=== PATIENT | female | born 1960 | race Caucasian/White ===

== ENCOUNTER 2017-10-30 08:51 | Emergency (ER) | payer OTHER ==
[~2017-10-30] VITALS: Ht 160 cm; Wt 60.3 kg
[~2017-10-30 08:51] MED LIST: ANTIDEPRESSANT; MECLIZINE HCL25 M1 PO; NEXIUM20 M1; PEGASYS180 MCG/1 SQ; PRILOSEC 20 MG20 MG PO; PROZAC 20 MG20 MG PO; RIBAVIRIN200 M1 PO; SYNTHROID112 MCG PO; ZOFRAN4 MG PO
[2017-10-30] MEDS ORDERED: TOPAMAX 25 MG T25 M1 PO (09:08)
[2017-10-30] MEDS ORDERED: SYNTHROID100 MCG PO (09:08)
[2017-10-30] MEDS ORDERED: IMITREX100 MG PO (09:09)
[2017-10-30] MEDS ORDERED: NEXIUM40 MG PO (09:09)
[2017-10-30] MEDS ORDERED: NAPROSYN500 MG PO (09:51)
[2017-10-30] MEDS ORDERED: AUGMENTIN 500-1 EACH PO (09:51)
[2017-10-30] MEDS ORDERED: NORCO 5-325 TA1 EACH PO (09:51)
[2017-10-30 10:09] VITALS: BP 130/82
== END 2017-10-30 10:09 | disposition home or self-care (01) ==
LOC: M.ERS 08:51
DX: M25.562 Pain in left knee (principal); E03.9 Hypothyroidism, unspecified; F32.9 Major depressive disorder, single episode, unspecified; Z90.710 Acquired absence of both cervix and uterus

== ENCOUNTER → 2017-11-02 | Outpatient (CLI) | payer OTHER ==
[~2017-11-02] MED LIST changes: +AUGMENTIN 500-1 EACH PO; +IMITREX100 MG PO; +NAPROSYN500 MG PO; +NEXIUM40 MG PO; +NORCO 5-325 TA1 EACH PO; +SYNTHROID100 MCG PO; +TOPAMAX 25 MG T25 M1 PO
[2017-11-02 17:57] LABS: BF RBC 10128 /mm3; TOTAL CELL COUNT 6947 /mm3
[2017-11-02 19:15] LABS: CLARITY CLOUDY; COLOR AMBER; SOURCE KNEE FLUID; TOTAL VOLUME 23 ml
[2017-11-02 19:27] LABS: BF LYMPHOCYTES 13 %; BF MONOCYTES 4 %; BF POLYS 83 %
[2017-11-05 11:43] LABS: SOURCE LEFT KNEE FLUID
[2017-11-08 09:07] LABS: BF CRYSTALS Negative (None seen)
== END ==
LOC: M.LAB 17:15
PROVIDERS: Orthopaedic Surgery
DX: B99.9 Unspecified infectious disease (principal)